=== PATIENT | female | born 1980 | race Caucasian/White ===

== ENCOUNTER → 2021-08-04 | Outpatient (CLI) | payer OTHER | LOC: M WHC 15:40 | PROVIDERS: ATTEND Nurse Practitioner Primary Care | DX: Z12.31 Encounter for screening mammogram for malignant neoplasm of breast (principal) ==

== ENCOUNTER 2021-12-15 10:44 | Day surgery (SDC) | payer OTHER ==
[~2021-12-15] VITALS: Ht 157.5 cm; Wt 96.3 kg
[~2021-12-15 10:44] MED LIST: ACETAMINOPHEN 500 MG TAB PO ONE; IRON65TA2 PO
[2021-12-15 11:22] LABS: HEMATOCRIT 39.3 % (36.0-47.0); HEMOGLOBIN 12.3 g/dl (12.0-15.5); MEAN CORPUSCULAR HEMOGLOBIN 25.3 pg (27.0-33.0); MEAN CORPUSCULAR HGB CONC 31.3 g/dl (32.0-36.5); MEAN CORPUSCULAR VOLUME 80.9 fl (80.0-96.0); PLATELET COUNT, AUTOMATED 227 10^3/uL (150-450); RED BLOOD COUNT 4.86 10^6/uL (4.00-5.40); WHITE BLOOD COUNT 8.8 10^3/uL (4.0-10.0)
[2021-12-15] MEDS ORDERED: LR 1,000 ML IV SCH ×2 (11:55→15:10)
[2021-12-15] MEDS ORDERED: dexameTHASONE 4 MG/ML 1ML VIAL (J1100 PER 1MG) As Ordered ONE (13:29)
[2021-12-15] MEDS ORDERED: propofoL 200 MG/20 ML VIAL As Ordered ONE ×2 (13:29→15:08)
[2021-12-15] MEDS ORDERED: ONDANSETRON 4MG/2ML VIAL As Ordered ONE (13:29)
[2021-12-15] MEDS ORDERED: KETOROLAC 60MG 2ML VIAL As Ordered ONE (13:29)
[2021-12-15] MEDS ORDERED: MIDAZOLAM INJ 2MG/2ML VIAL (J2250 PER 1MG) As Ordered ONE (13:29)
[2021-12-15] MEDS ORDERED: LIDOCAINE 2% 100MG/5ML SDV (FOR ANES.) As Ordered ONE (13:29)
[2021-12-15] MEDS ORDERED: fentaNYL 100 MCG/2 ML INJECTION As Ordered ONE (13:29)
[2021-12-15] MEDS ORDERED: ROCURONIUM BROMIDE 50 MG/5 ML VIAL As Ordered ONE (14:19)
[2021-12-15] MEDS ORDERED: ACETAMINOPHEN 1000MG 100ML IV BTL (OFIRMEV) (J0131 PER 10MG) As Ordered ONE (14:27)
[2021-12-15] MEDS ORDERED: PHENYLephrine 500MCG 5ML (100MCG/ML) SYRINGE As Ordered ONE (14:35)
[2021-12-15] MEDS ORDERED: SUGAMMADEX SODIUM 500 MG/5 ML VIAL (BRIDION) As Ordered ONE (14:36)
[2021-12-15] MEDS ORDERED: SILVER NITRATE APPLICATOR (1 = QTY 10) As Ordered ONE (14:57)
[2021-12-15] MEDS ORDERED: ONDANSETRON 4MG/2ML VIAL IV PRN (15:10)
[2021-12-15] MEDS ORDERED: fentaNYL 100 MCG/2 ML INJECTION IV PRN (15:10)
[2021-12-15] MEDS ORDERED: oxyCODONE 5MG TAB PO PRN (15:10)
[2021-12-15 17:30] VITALS: BP 131/75
== END 2021-12-15 17:31 | disposition home or self-care (01) ==
LOC: M SDC 10:44
PROVIDERS: ATTEND Obstetrics & Gynecology
DX: N93.9 Abnormal uterine and vaginal bleeding, unspecified (principal); L91.8 Other hypertrophic disorders of the skin
CPT/HCPCS: 11200; 36415; 58558; 81025; 85027; 86850; 86900; 86901; 88304; 88305; J0131; J1100; J1885; J2250; J2370; J2405; J3010

== ENCOUNTER → 2022-02-10 | Outpatient (CLI) | payer OTHER ==
[~2022-02-10] MED LIST changes: -ACETAMINOPHEN 500 MG TAB PO ONE
== END ==
LOC: M RAD 13:02
PROVIDERS: ATTEND Surgery
DX: I83.893 Varicose veins of bilateral lower extremities with other complications (principal)

== ENCOUNTER 2022-10-03 11:23 | Day surgery (SDC) | payer OTHER ==
[~2022-10-03] VITALS: Ht 160 cm; Wt 98.0 kg
[~2022-10-03 11:23] MED LIST changes: +ALBU6.7H6 INH; +NS 1,000 ML IV ONE; +OMEP40CA5 PO; +VITMTA PO
[2022-10-03 13:35] VITALS: BP 139/78
== END 2022-10-03 13:40 | disposition home or self-care (01) ==
LOC: M OPP 11:23
PROVIDERS: ATTEND Internal Medicine Gastroenterology
DX: K22.89 Other specified disease of esophagus (principal); K76.0 Fatty (change of) liver, not elsewhere classified; J45.909 Unspecified asthma, uncomplicated; Z79.51 Long term (current) use of inhaled steroids; Z79.899 Other long term (current) drug therapy; Z91.041 Radiographic dye allergy status